=== PATIENT | female | born 1985 | race American Indian/Alaskan Native ===

== ENCOUNTER 2020-07-09 03:50 | Emergency (ER) | payer MEDICARE ==
[2020-07-09 04:41] LABS: Amorphous Crystals,Urine Few; Bacteria,Urine 1+ /HPF (Negative); Bilirubin,Urine NEG (Negative); Blood,Urine SM (Negative); Color,Urine Yellow (Yellow); Mucus,Urine FEW /HPF; Protein,Urine <15 mg/dL mg/dL (Negative); Urobilinogen,Urine < 2.0 mg/dL (<2.0)
[2020-07-09 04:42] LABS: HCG Qualitative,Urine Negative (Negative)
[2020-07-09] MEDS ORDERED: AZITHROMYCIN 250 MG TAB PO ONE (04:46)
[2020-07-09] MEDS ORDERED: IBUPROFEN 600 MG TAB PO ONE (04:46)
[2020-07-09] MEDS ORDERED: LIDOCAINE VISCOUS 2% 15 ML ORAL LIQD PO ONE (04:46)
--- NOTE | 2020-07-09 04:51 | Emergency Department Report ---
ED Female HPI - General Chief complaint: Urogenital-Female Stated complaint: STD CHECK Source: patient Mode of arrival: Ambulatory Limitations: No Limitations - History of Present Illness Initial comments: Patient is a 34-year-old -[place] female with no past medical history presents to the ED with complaint of acute onset persistent sore throat, dysuria, urinary frequency and urgency and suprapubic pressure for the last 2 days. Patient states that she last had an unprotected sexual intercourse with her sexual partner about 5 days ago. Patient states that about 24 hours ago, her sexual partner told her that he had infected with STD after he developed penile discharge and dysuria but would not go for treatment. Patient states that she confirmed the same when she asked the partner to show him his genitals. Patient denies fever, chills, nausea, vomiting, dizziness, syncope, abdominal pain, vaginal bleeding, low back pain, diarrhea, dyspareunia or headache. MD Complaint: vaginal discharge, possible STD, other (sore throat) -: Sudden, days(s) (2) Location: other (Vaginal; throat) Radiation: non-radiating Severity: moderate Severity scale (0 -10): 4 Quality: sharp, burning Consistency: constant Improves with: none Worsens with: urination, intercourse, other (swallowing) Are you Now?: No Last Menstrual Period: 06/26/20 EDC: 04/02/21 Associated Symptoms: denies other symptoms, vaginal discharge, dysuria. denies: vaginal bleeding, abdominal pain, nausea/vomiting, fever/chills, headaches, loss of appetite, hematuria, seizure, shortness of breath, syncope, weakness - Related Data Sexually active: Yes : 2 Para: 1 A: 1 Previous Rx's Medication Instructions Recorded Last Taken Type Doxycycline Hyclate 100 mg PO Q12H #20 tablet. 07/09/20 Unknown Rx Ibuprofen [Motrin] 800 mg PO Q8HR PRN #24 tablet 07/09/20 Unknown Rx Lidocaine Viscous 2% 10 ml PO Q6H PRN #120 ml 07/09/20 Unknown Rx metroNIDAZOLE [Flagyl] 500 mg PO Q12HR #20 tab 07/09/20 Unknown Rx Allergies Allergy/AdvReac Type Severity Reaction Status Date / Time Penicillins Allergy Anaphylaxis Verified 07/09/20 03:55 ED Review of Systems ROS: Stated complaint: STD CHECK Other details as noted in HPI Constitutional: denies: chills, fever Eyes: denies: eye pain, eye discharge, vision change ENT: throat pain, other (Dysphagia). denies: ear pain Respiratory: denies: cough, shortness of breath, wheezing Cardiovascular: denies: chest pain, palpitations Endocrine: no symptoms reported Gastrointestinal: denies: abdominal pain, nausea, vomiting, diarrhea Genitourinary: urgency, dysuria, frequency, discharge Musculoskeletal: denies: back pain, joint swelling, arthralgia Skin: denies: rash, lesions Neurological: denies: headache, weakness, paresthesias Psychiatric: denies: anxiety, depression Hematological/Lymphatic: denies: easy bleeding, easy bruising ED Past Medical Hx - Past Medical History Additional medical history: endometriosis - Surgical History Additional Surgical History: partial hysterectomy, right arm cyst, left arm sx - Social History Smoking Status: Current Every Day Smoker - Medications Home Medications: Home Medications Medication Instructions Recorded Confirmed Last Taken Type Doxycycline Hyclate 100 mg PO Q12H #20 tablet. 07/09/20 Unknown Rx Ibuprofen [Motrin] 800 mg PO Q8HR PRN #24 tablet 07/09/20 Unknown Rx Lidocaine Viscous 2% 10 ml PO Q6H PRN #120 ml 07/09/20 Unknown Rx metroNIDAZOLE [Flagyl] 500 mg PO Q12HR #20 tab 07/09/20 Unknown Rx ED Physical Exam - General Limitations: No Limitations General appearance: alert, in no apparent distress - Head Head exam: Present: atraumatic, normocephalic, normal inspection - Eye Eye exam: Present: normal appearance, PERRL, EOMI Pupils: Present: normal accommodation - ENT ENT exam: Present: normal exam, normal orophraynx, mucous membranes moist, TM's normal bilaterally, normal external ear exam - Neck Neck exam: Present: normal inspection - Respiratory Respiratory exam: Present: normal lung sounds bilaterally. Absent: respiratory distress, wheezes, rales, rhonchi, stridor, chest wall tenderness - Cardiovascular Cardiovascular Exam: Present: regular rate, normal rhythm. Absent: systolic murmur, diastolic murmur, rubs, gallop - GI/Abdominal GI/Abdominal exam: Present: soft, normal bowel sounds. Absent: distended, tenderness, guarding - Bi-manual exam: Present: other (Pelvic exam deferred, patient prefers self swab ) - Extremities Exam Extremities exam: Present: normal inspection, full ROM, normal capillary refill. Absent: tenderness, pedal edema, calf tenderness - Back Exam Back exam: Present: normal inspection, full ROM. Absent: tenderness, CVA tenderness (R), CVA tenderness (L), muscle spasm, paraspinal tenderness - Neurological Exam Neurological exam: Present: alert, oriented X3, CN II-XII intact, normal gait, reflexes normal - Psychiatric Psychiatric exam: Present: normal affect, normal mood - Skin Skin exam: Present: warm, dry, intact, normal color. Absent: rash ED Course Vital Signs 07/09/20 03:53 Temperature 98.0 F Pulse Rate 85 Respiratory 18 Rate Blood Pressure 131/91 O2 Sat by Pulse 99 Oximetry ED Medical Decision Making - Medical Decision Making This is a 34-year-old -[place] female with no past medical history presents to the ED with complaint of acute onset persistent sore throat, dysuria, urinary frequency and urgency and suprapubic pressure for the last 2 days. Patient states that she last had an unprotected sexual intercourse with her sexual partner about 5 days ago. Patient states that about 24 hours ago, her sexual partner told her that he had infected with STD after he developed penile discharge and dysuria but would not go for treatment. Patient states t hat she confirmed the same when she asked the partner to show him his genitals. In the ED, patient is alert and oriented x3 and is not in distress. Urinalysis showed significant urinary tract infection, and the patient was treated in the ED empirically for STD and was also discharged home on medications. Patient was advised to follow-up with the [facility] department for further STD testing including HIV and syphilis. Patient was advised to observe safe sexual practices and to ensure that his sexual partner gets treated at the health appointment for the same. Patient was advised to return to the ED immediately if symptoms get worse. - Differential Diagnosis gonorrhea; chlamydia; UTI; cervicitis; bacterial vaginosis; trichomonas Critical care attestation.: If time is entered above; I have spent that time in minutes in the direct care of this critically ill patient, excluding procedure time. ED Disposition Clinical Impression: Acute urinary tract infection, Dysuria, STD (sexually transmitted disease), Chlamydia vaginitis/cervicitis, Gonococcal pharyngitis, female Acute pharyngitis Qualifiers: Pharyngitis/tonsillitis etiology: other specified organisms Qualified Code(s): J02.8 - Acute pharyngitis due to other specified organisms Disposition: TO HOME OR SELFCARE Is pt being admited?: No Does the pt Need Aspirin: No Condition: Stable Instructions: Antibiotic Medicine, Adult, [id number], Urinary Tract Infection, Adult, [id number], Pharyngitis, [id number], Chlamydia Infection (ED) Additional Instructions: Take medication with food, drink plenty of fluids and follow-up with the [facility] department for further STD testing including HIV and syphilis. Return to the ED immediately if symptoms get worse. Prescriptions: Doxycycline Hyclate 100 mg PO Q12H #20 tablet. metroNIDAZOLE [Flagyl] 500 mg PO Q12HR #20 tab Lidocaine Viscous 2% 10 ml PO Q6H PRN #120 ml PRN Reason: Pain , Severe (7-10) Ibuprofen [Motrin] 800 mg PO Q8HR PRN #24 tablet PRN Reason: Pain , Severe (7-10) Referrals: [facility] [Outside] - 3-5 Days Forms: STI Treatment and Prevention Time of Disposition: 05:18 Print Language: POLISH
[2020-07-09] MEDS ORDERED: GENTAMICIN 40 MG/ML VIAL 2 ML IM ONE (05:25)
[2020-07-09 05:36] VITALS: BP 131/91
== END 2020-07-09 06:15 | disposition home or self-care (01) ==
LOC: ED 03:50
DX: N39.0 Urinary tract infection, site not specified (principal); A54.5 Gonococcal pharyngitis; A56.02 Chlamydial vulvovaginitis; R30.0 Dysuria; F17.200 Nicotine dependence, unspecified, uncomplicated; Z98.890 Other specified postprocedural states; Z79.1 Long term (current) use of non-steroidal anti-inflammatories (NSAID); Z79.899 Other long term (current) drug therapy; Z88.0 Allergy status to penicillin
CPT/HCPCS: 81001; 81025; 96372; 99283; J1580